=== PATIENT | female | born 1985 | race Caucasian/White ===

== ENCOUNTER → 2016-04-30 | Outpatient (CLI) | payer MEDICAID ==
[~2016-04-30] MED LIST: AMLODIPINE BESY10 M1 PO; AMOXIL500 MG PO; BACTRIM DS 8001 TAB PO; CIPRO 500MG TA500 MG PO; DARVOCET-N 1001 EACH PO; ED-SPAZ0.125 MG PO; EFFEXOR 37.5M37.5 MG PO; ENDOCET 325 MG-1 TA1 PO; FERROUS SULFAT200 M1 PO; FERROUS SULFAT325 M2 PO; FLEXERIL10 MG PO; IBU-8800 MG PO; KEFLEX 500MG.500 MG PO; LABETALOL 100M100 M1 FT; LORTAB 5/500 501 TAB PO; MEDROL 4MG. DOSE4 MG PO; MOTRIN600 MG PO; NORCO 325 MG-51 TAB PO; PERCOCET 325 MG1 TA4 PO; PHENERGAN 12.12.5 M1 PO; PRENATAL PLUS1 TA1 PO; PRILOSEC40 MG PO; PROTONIX 40MG T40 MG PO; RANITIDINE150 M1 PO; TESSALON PERLE200 MG PO; TRIAMTERENE/HCT1 TA1 PO; TYLENOL W/CODEI1 TA2 PO; UTIRA-C TABLET1 TAB PO; VENLAFAXINE H37.5 MG PO; VICODIN 5/500 T1 TAB PO; VOLTAREN75 MG PO; ZOFRAN ODT4 MG PO; ZOFRAN4 MG PO
[2016-04-30 14:58] LABS: AMPHETAMINES/METAMPHETAMINES NEGATIVE ng/mL (<1000)
== END ==
LOC: LAB 14:17
PROVIDERS: Nurse Practitioner Family
DX: E66.01 Morbid (severe) obesity due to excess calories (principal)